=== PATIENT | female | born 1985 | race Caucasian/White ===

== ENCOUNTER 2016-03-26 20:26 | Emergency (ER) | payer BC ==
[~2016-03-26] VITALS: Ht 175.3 cm; Wt 60.5 kg
[2016-03-26 20:30] VITALS: TEMP 98.4
[2016-03-26] MEDS ORDERED: VITAMIN D31000 IU PO (20:32)
[2016-03-26] MEDS ORDERED: PRENATAL 191 TAB PO (20:32)
[2016-03-26 21:08] LABS: BASO % 0.2 % (0.0-2.0); EOS % 0.2 % (0-4.0); GRAN # 4.9 (1.4-6.5); GRAN % 87.7 % (42.2-75.2); HEMOGLOBIN 12.9 g/dl (12.5-16.0); LYMPH # 0.3 (1.2-3.4); MEAN CELL VOLUME 90 fl (80.0-100.0); MEAN CORPUSCULAR HEMOGLOBIN 32 pg (27.0-31.0); MEAN CORPUSCULAR HGB CONC 35 g/dl (33.0-37.0); MEAN PLATELET VOLUME 11.3 fl (7.4-10.4); MONO # 0.3 (0.1-0.6); MONO % 5.2 % (1.7-9.3); PLATELET COUNT 129 K/mm3 (130-400); RED BLOOD COUNT 4.05 M/mm3 (4.10-5.30); REDCELL DISTRIBUTION WIDTH-CV 14.3 % (11.5-14.5); WHITE BLOOD COUNT 5.6 K/mm3 (4.8-10.8)
[2016-03-26 21:09] LABS: HEMATOCRIT 36.6 % (37.0-47.0)
[2016-03-26 21:18] LABS: ADJUSTED CALCIUM 9.4 mg/dL (8.4-10.2); ALBUMIN 3.7 gm/dL (3.5-5.0); BILIRUBIN,TOTAL 0.9 mg/dL (0.0-1.0); CALCIUM 9.2 mg/dL (8.4-10.2); CREATININE, serum 0.51 mg/dL (0.52-1.25); POTASSIUM 3.6 mmol/L (3.4-5.0); TOTAL PROTEIN 6.8 gm/dL (6.4-8.2)
[2016-03-26 21:27] LABS: INFLUENZA B NEGATIVE
[2016-03-26] MEDS ORDERED: PHENERGAN 25 TA25 MG PO (22:35)
[2016-03-26 22:41] VITALS: BP 100/72; PULSE 83
== END 2016-03-26 22:43 | disposition home or self-care (01) ==
LOC: COL.ER 20:26
PROVIDERS: Emergency Medicine
DX: O99.89 Other specified diseases and conditions complicating pregnancy, childbirth and the puerperium (principal); R11.2 Nausea with vomiting, unspecified; R19.7 Diarrhea, unspecified; Z3A.16 16 weeks gestation of pregnancy
CPT/HCPCS: J2405; J2550; J7030

== ENCOUNTER → 2019-12-10 | Outpatient (CLI) | payer BC ==
[~2019-12-10] MED LIST: PHENERGAN 25 TA25 MG PO; PRENATAL 191 TAB PO; VITAMIN D31000 IU PO
== END ==
LOC: COL.LAB 08:56
DX: Q28.3 Other malformations of cerebral vessels (principal); Z20.828 Contact with and (suspected) exposure to other viral communicable diseases